=== PATIENT | male | born 1995 | race Caucasian/White ===

== ENCOUNTER 2019-03-30 20:43 | Emergency (ER) | payer OTHER ==
[~2019-03-30] VITALS: Ht 167.6 cm; Wt 59.0 kg
[2019-03-30 20:52] VITALS: BP 110/56
[2019-03-30] MEDS ORDERED: ULTRAM PO STA (21:08)
[2019-03-30] MEDS ORDERED: ULTRAM ONE (21:15)
[2019-03-30] MEDS ORDERED: ZOFRAN ODT ONE (21:17)
[2019-03-30] MEDS ORDERED: ZOFRAN IV STA (21:22)
--- NOTE | 2019-03-30 21:33 | ER.PDOC ---
General Chief Complaint: Requesting Medical Care Stated Complaint: HEAD/HIP PAIN Time seen by MD: 21:32 Source: patient Exam Limitations: no limitations History of Present Illness Initial Comments Headache and right hip pain S/P fall from a horse this evening. Occurred: this evening Severity: moderate Injuries/Pain Location: head, lower extremity Loss of Consciousness: Brief (Seconds) Associated Symptoms: headache Past Medical History Medical History: no pertinent history Surgical History: no surgical history Family History Significant Family History: no pertinent family hx Review of Systems Constitutional: no symptoms reported Eyes: no symptoms reported Respiratory: no symptoms reported Cardiovascular: no symptoms reported Gastrointestinal: nausea Musculoskeletal: see HPI All Other Systems: Reviewed and Negative Physical Exam General Appearance: No Apparent Distress, WD/WN Head: No Evidence of Injury Eyes: bilateral eye normal inspection Neck: Non-Tender, Normal Alignment, Nexus criteria neg, Normal Inspection Cardiovascular/Respiratory: Regular Rate, Rhythm, No M/R/G, Normal Peripheral Pulses, No JVD, Normal Breath Sounds, No Respiratory Distress Gastrointestinal: Normal Bowel Sounds, No Organomegaly, No Pulsatile Mass, Non Tender, Soft Back: Normal Inspection, No CVA Tenderness, No Vertebral Tenderness Extremities: Pain With Movement (right hip) 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, No Motor/Sensory Deficits, Alert, Normal Mood/Affect, Oriented x 3 Skin: Normal Color, Warm/Dry [place] Coma Score Best Eye Response: (4) Open Spontaneously Best Verbal Response: (5) Oriented Best Motor Response: (6) Obeys Commands Results/Orders Results/Orders Orders - ROGER MONROE MD Ct Head Wo Contrast (03/30/19 21:08) Ct Pelvis Wo Iv Contrast (03/30/19 21:08) Tramadol Hcl (Ultram) (03/30/19 21:08) Tramadol Hcl (Ultram) (03/30/19 21:15) Ondansetron (Zofran Odt) (03/30/19 21:17) Ondansetron Hcl (Zofran) (03/30/19 21:22) Administered Medications Medications (Trade) Dose Ordered Sig/Eileen Route PRN Reason Start Time Stop Time Status Last Admin Dose Admin Ondansetron HCl (Zofran) 4 mg STAT STAT IV 03/30/19 21:22 03/30/19 21:23 DC 03/30/19 21:23 4 MG Tramadol HCl (Ultram) 50 mg STAT STAT PO 03/30/19 21:08 03/30/19 21:11 DC 03/30/19 21:23 50 MG EKG/XRAY/CT/US CT Comments: Normal CT head and pelvis Departure Time of Disposition: 21:55 Disposition: 01 HOME, SELF-CARE Impression: Primary Impression: Multiple contusions Additional Impression: Head injury Qualified Codes: S09.90XA - Unspecified injury of head, initial encounter Condition: Stable Referrals: PCP,UNKNOWN (PCP) PRIMARY CARE PROVIDER Additional Instructions: Ibuprofen F/U with your PCP next week Duration or Time Spent with Pa: 45 mins FER,ROGER Brown MD Mar 30, 2019 21:33
--- NOTE | 2019-03-30 21:47 | DIREP ---
PROCEDURE:CT HEAD OR BRAIN W/O CONTRAST COMPARISON:None. INDICATIONS:injury from falling off a horse TECHNIQUE:CT images were created without intravenous contrast. FINDINGS: VENTRICLES:The ventricles are normal in size and configuration. CEREBRUM:Normal cerebral morphology with appropriate mullins white matter differentiation. CEREBELLUM:Negative. BRAINSTEM:Negative. BASAL CISTERNS:Negative. HEMORRHAGE:No MASS LESION:No ACUTE INFARCT:No SKULL:Normal. SINUSES:Normal. OTHER:None. CONCLUSION:Normal examination. Dictated by: Jeromy Vanessa M.D. on 03/30/2019 at 09:46 PM
--- NOTE | 2019-03-30 21:52 | DIREP ---
PROCEDURE:CT PELVIS W/O COMPARISON:None. INDICATIONS:Right hip injury S/P fall from a horse TECHNIQUE:Axial images were created through the pelvis without intravenous contrast material. No oral contrast was administered. Sagittal and coronal reconstructions were performed from source images. FINDINGS: AORTA/VASCULAR:Normal. No aneurysm. RETROPERITONEUM:Normal. No mass or adenopathy. BOWEL/MESENTERY:Normal. There is no intestinal obstruction, free fluid, free air or mesenteric inflammatory changes. ABDOMINAL WALL:Normal. No mass or hernia. PELVIC ORGANS:Normal. No visible mass. Pelvic organs appropriate for patient age. BONES:Normal for age. No bony lesion or acute fracture. OTHER:Negative. CONCLUSION:Normal examination. No fracture or subluxation. Dictated by: Jeromy Vanessa M.D. on 03/30/2019 at 09:49 PM
[2019-03-30 22:27] VITALS: BP 110/69
[2019-03-30 23:04] VITALS: BP 110/69
== END 2019-03-30 22:32 | disposition home or self-care (01) ==
LOC: ER 20:43
DX: S70.01XA Contusion of right hip, initial encounter (principal); S09.90XA Unspecified injury of head, initial encounter; R11.0 Nausea; Z79.899 Other long term (current) drug therapy; V80.010A Animal-rider injured by fall from or being thrown from horse in noncollision accident, initial encounter; Y93.52 Activity, horseback riding; Y92.89 Other specified places as the place of occurrence of the external cause; Y99.8 Other external cause status
CPT/HCPCS: 70450; 72192; 96374; 99284; Q0162